=== PATIENT | male | born 1950 | race Hispanic/Latino ===

== ENCOUNTER 2023-10-26 14:56 | Inpatient (IN) | payer OTHER ==
--- OUTSIDE RECORDS SUMMARY | 2023-10-26 17:16 | XMS REPORT | Continuity of Care Document ---
Author Name Unknown Address [address] [facility] [address] [place] [address] [facility] thconnect Address [address] [facility] [address] [place] [address] Care Team Providers Care Pitch Gatherer Name Role Phone TAMIKO ARREGUIN Attending Clinician Unavailable JUAN ANTONIO GEORGE Attending Clinician Unavailable Mary Attending Clinician Unavailable LUCA ROSALES Attending Clinician Unavailable GERMAN ORTEGA Attending Clinician Unavailab JYOTI Call Attending Clinician Unavailab TAMIKO Mancia Admitting Clinician Unavailable Young_J Admitting Clinician Unavailable Payers Payer Name Policy Type Policy Number Effective Date Expirati on Date Source MEDICARE PART A AND B [id number] 2008 00:00:00 [place] [employer] [id number] 2008 00:00:00 Social History Smoking Status Start Date Stop Date Source Light Tobacco Smoker [facility] Medications Ordered Medication Name Filled Medication Name Start Date Stop Date Current Medication? Ordering Clinician Indication Dosage Frequency Signature (SIG) Comments Components Source fenofibrate 54 mg tablet TAKE 1 TABLET BY MOUTH ONCE DAILY DIRECTED fenofibrate 54 mg tablet TAKE 1 TABLET BY MOUTH ONCE DAILY DIRECTED No fenofibrat e 54 mg tablet TAKE 1 TABLET BY MOUTH ONCE DAILY DIRECTED [facility] [facility] [employer] FeroSul 325 mg (65 mg iron) tablet TAKE 1 TABLET BY MOUTH ONCE DAILY DIRECTED FOR 90 DAYS FeroSul 325 mg (65 mg iron) tablet TAKE 1 TABLET BY MOUTH ONCE DAILY DIRECTED FOR 90 DAYS No FeroSul 325 mg (65 mg iron) tablet TAKE 1 TABLET BY MOUTH ONCE DAILY DIRECTED FOR 90 DAYS [facility] [facility] [employer] folic acid 1 mg tablet TAKE 1 TABLET BY MOUTH ONCE DAILY folic acid 1 mg tablet TAKE 1 TABLET BY MOUTH ONCE DAILY No folic acid 1 mg tablet TAKE 1 TABLET BY MOUTH ONCE DAILY [facility] [facility] [employer] losartan 100 mg tablet TAKE 1 TABLET BY MOUTH IN THE MORNING losartan 100 mg tablet TAKE 1 TABLET BY MOUTH IN THE MORNING No losartan 100 mg tablet TAKE 1 TABLET BY MOUTH IN THE MORNING [facility] [employer] metoprolol tartrate 50 mg tablet TAKE 1 TABLET BY MOUTH EVERY 12 HOURS metoprolol tartrate 50 mg tablet TAKE 1 TABLET BY MOUTH EVERY 12 HOURS No metoprolol tartrate 50 mg tablet TAKE 1 TABLET BY MOUTH EVERY 12 HOURS [facility] mirtazapine 15 mg tablet TAKE 1 TABLET BY MOUTH AT BEDTIME mirtazapine 15 mg tablet TAKE 1 TABLET BY MOUTH AT BEDTIME No mirtazapin e 15 mg tablet TAKE 1 TABLET BY MOUTH AT BEDTIME [facility] omeprazole 20 mg capsule,del ayed release TAKE 1 CAPSULE BY MOUTH TWICE DAILY omeprazole 20 mg capsule,del ayed release TAKE 1 CAPSULE BY MOUTH TWICE DAILY No omeprazole 20 mg capsule,de layed release TAKE 1 CAPSULE BY MOUTH TWICE DAILY [employer] [facility] [employer] ondansetron HCl 4 mg tablet TAKE 1 TABLET BY MOUTH EVERY 8 HOURS NEEDED FOR NAUSEA ondansetron HCl 4 mg tablet TAKE 1 TABLET BY MOUTH EVERY 8 HOURS NEEDED FOR NAUSEA No ondansetro n HCl 4 mg tablet TAKE 1 TABLET BY MOUTH EVERY 8 HOURS NEEDED FOR NAUSEA [employer] [facility] [employer] polyethylen e glycol 3350 17 gram/dose oral powder MIX 17 G OF POWDER DIRECTED AND DRINK TWICE DAILY polyethylen e glycol 3350 17 gram/dose oral powder MIX 17 G OF POWDER DIRECTED AND DRINK TWICE DAILY No polyethyle ne glycol 3350 17 gram/dose oral powder MIX 17 G OF POWDER DIRECTED AND DRINK TWICE DAILY [facility] [facility] [employer] thiamine mononitrate (vitamin B1) 100 mg tablet TAKE 1 TABLET BY MOUTH ONCE DAILY thiamine mononitrate (vitamin B1) 100 mg tablet TAKE 1 TABLET BY MOUTH ONCE DAILY No thiamine mononitrat e (vitamin B1) 100 mg tablet TAKE 1 TABLET BY MOUTH ONCE DAILY [facility] cholecalcif анна (vitamin D3) 1,250 mcg (50,000 unit) capsule TAKE 1 CAPSULE BY MOUTH ONCE A WEEK DIRECTED cholecalcif анна (vitamin D3) 1,250 mcg (50,000 unit) capsule TAKE 1 CAPSULE BY MOUTH ONCE A WEEK DIRECTED No cholecalci ferol (vitamin D3) 1,250 mcg (50,000 unit) capsule TAKE 1 CAPSULE BY MOUTH ONCE A WEEK DIRECTED [facility] docusate sodium 100 mg capsule TAKE 1 CAPSULE BY MOUTH ONCE DAILY docusate sodium 100 mg capsule TAKE 1 CAPSULE BY MOUTH ONCE DAILY No docusate sodium 100 mg capsule TAKE 1 CAPSULE BY MOUTH ONCE DAILY [facility] Vital Signs Vital Name Observation Time Observation Value Comments S ource BMI (Body Mass Index) 2023-04-21 00:00:00 26.8 kg/m2 [facility] Height 2023-04-21 00:00:00 63 [in_i] [facility] Body Weight 2023-04-21 00:00:00 151.3 [facility]lb_av[facility] Diastolic 2023-04-21 00:00:00 75 mm[Hg] [facility] BP Systolic 2023-04-21 00:00:00 126 mm[Hg] [facility] Procedures Procedure Date / Time Performed Performing Clinicia n Source Append[facility] Gastrostomy Tube [facility] Encounters Start Date/Time End Date/Time Encounter Type Admission Type Attending Clinicians Care Facility Care Department Encounter ID Source 2022-10-25 10:41:11 Outpatient [facility] [id number] [facility] 2022-10-04 15:24:52 Outpatient [facility] [id number] [facility] 2022-10-03 16:43:43 Outpatient [facility] [id number] [facility] 2022-09-26 08:35:05 Outpatient [facility] [id number] [facility] 2023-10-24 22:46:00 2023-10-26 15:50:00 Inpatient TAMIKO MONTGOMERY [facility] [id number] [facility] 2023-10-24 22:46:00 2023-10-26 15:50:00 observatio n encounter [facility] [id number] [facility] [id number] 2023-10-20 11:58:00 2023-10-20 11:58:00 Outpatient JUAN ANTONIO FRANZ [facility] [id number] [facility] 2023-05-29 00:00:00 2023-05-29 00:00:00 Outpatient Young_J [facility] [id number] [facility] 2023-04-21 00:00:00 2023-04-21 00:00:00 Outpatient Young_J [facility]G MMG [id number] [facility] 2023-04-21 00:00:00 2023-04-21 00:00:00 Outpatient Young_J MMG MMG [id number] [facility] 2023-04-21 00:00:00 2023-04-21 00:00:00 Mario Leal, DO: [address], [address], [place] [address] , Ph. [phone] [facility] General surgery [id number] [facility] 2023-04-20 00:00:00 2023-04-20 00:00:00 [facility] [id number] [facility] 2023-04-04 00:00:00 2023-04-04 00:00:00 Outpatient Young_J [facility] [id number] [facility] 2022-11-06 19:23:00 2022-11-06 21:56:00 Emergency ER LUCA ROSALES [facility] [id number] [facility] 2022-11-06 19:23:00 2022-11-06 21:56:00 emergency [id number] 2022-11-03 16:00:00 2022-11-03 16:00:00 Outpatient BRI ORTEGAMATAgnse [facility] [id number] [facility] 2012-10-16 13:58:00 2012-10-16 15:54:00 Emergency ER JYOTI DANIEL [facility] [id number] [facility]
[2023-10-26] MEDS ORDERED: ACETAMINOPHEN 325 MG TABLET PO PRN (18:21)
[2023-10-26] MEDS ORDERED: IPRATROPIUM BROM 0.5MG/2.5ML NEB PRN (18:44)
[2023-10-26] MEDS ORDERED: ALBUTEROL 2.5 MG/3 ML NEB SOL NEB PRN (18:46)
[2023-10-26] MEDS ORDERED: MAGNESIUM HYDROXIDE 8% 30 ML PO PRN (18:48)
[2023-10-26] MEDS ORDERED: ONDANSETRON 4 MG (ODT) TAB PO PRN (18:49)
[2023-10-26] MEDS ORDERED: cloNIDine HCL 0.1 MG TAB PO PRN (20:10)
[2023-10-26] MEDS ORDERED: MELATONIN 3 MG TABLET PO PRN (20:10)
[2023-10-26] MEDS: DOCUSATE NA/SENNA CONC 1 TAB PO SCH (20:17)
[2023-10-26] MEDS: FENOFIBRATE 48 MG TAB PO SCH (20:17)
[2023-10-26] MEDS: METOPROLOL TAR 50 MG TAB PO SCH (20:17)
[2023-10-26] MEDS: APIXABAN 2.5 MG TABLET PO SCH (20:17)
[2023-10-27] MEDS ORDERED: HEPARIN 5000 UNIT/ML 1 ML VIAL SQ SCH (01:00)
[2023-10-27 04:05] LABS: Specific Gravity 1.018 (1.005-1.030); Sqamous Epithelial None Seen /HPF (None Seen); Urine Bacteria None Seen /HPF (<20); Urine Bilirubin NEGATIVE (Negative); Urine Blood Trace (Negative); Urine Clarity Clear (Clear); Urine Color Light-Yellow (Yellow); Urine Culture Reflex Order NOT NEEDED; Urine Glucose NEGATIVE (Negative); Urine Ketones NEGATIVE (Negative); Urine Micro Reflex YN NO BILL MICROSCOPIC; Urine Mucus Slight /HPF (None Seen); Urine Nitrite NEGATIVE (Negative); Urine Protein NEGATIVE (Negative); Urine Urobilinogen Normal (Normal); Urine WBC <5 /HPF (<5); Urine pH 5.5 (5.0-7.0)
[2023-10-27 04:08] LABS: Absolute Basophils 0.1 K/uL (0-0.5); Absolute Eosinophils 0.3 K/uL (0-0.5); Absolute Lymphocytes (CBC) 1.8 K/uL (0.7-4.9); Absolute Monocytes 0.4 K/uL (0.1-1.3); Absolute Neutrophil 4.6 K/uL (1.8-8.0); Basophils % 0.7 % (0-1.3); Eosinophils % 3.8 % (0-4.4); Hematocrit 37.2 % (39.6-49.0); Hemoglobin 12.7 g/dL (13.6-17.9); Lymphocytes % 25.1 % (15.3-44.8); MCH 30.9 pg (27.0-35.0); MCHC 34.2 g/dL (32.0-36.0); MCV 90.2 fL (80-100); MPV 8.1 fL (7.6-11.3); Monocytes % 6.2 % (3.3-12.3); Neutrophils % 64.2 % (41.7-73.7); Nucleated Red Blood Cells % 0.1 % (0-0); Platelets 283 thou/uL (152-406); RBC Red Blood Cell Count 4.13 M/uL (4.33-5.43); Red Cell Distribution Width 14.4 % (12.1-15.2)
[2023-10-27 04:43] LABS: Albumin 3.1 g/dL (3.4-5.0); Anion Gap 9.5 mEq/L (5.0-15.0); Magnesium 2.1 mg/dL (1.6-2.4); Potassium 4.5 mEq/L (3.5-5.1); Prealbumin 14.1 mg/dL (20-40)
[2023-10-27] MEDS: LOSARTAN POTASSIUM 50 MG TABLET PO SCH (06:47)
[2023-10-27] MEDS: PANTOPRAZOLE 40MG TABLET PO SCH (06:47)
[2023-10-27] MEDS ORDERED: FENOFIBRATE 48 MG TAB PO SCH (08:00)
[2023-10-27] MEDS: ASPIRIN EC 325 MG TABLET PO SCH (08:20)
[2023-10-27] MEDS: FOLIC ACID 1 MG TABLET PO SCH (08:21)
--- NOTE | 2023-10-27 13:34 | P.RH.PN ---
Estimated Length of Stay: 11 Expected Discharge Date: 11/07/23 Discharge Disposition Plan: Home Family Support: Yes Long-Term Goal: Mobility, Transfers, Self Care Vital Signs: Last Vital Signs Temp 97.7 F 10/27/23 07:30 Pulse 66 10/27/23 08:20 Resp 14 10/27/23 07:30 BP 140/74 10/27/23 08:20 Pulse Ox 96 10/27/23 07:30 Laboratory: Laboratory Last Values WBC 7.10 thou/uL (4.3-10.9) 10/27/23 03:29 RBC 4.13 M/uL (4.33-5.43) L 10/27/23 03:29 Hgb 12.7 g/dL (13.6-17.9) L 10/27/23 03:29 Hct 37.2 % (39.6-49.0) L 10/27/23 03:29 MCV 90.2 fL (80-100) 10/27/23 03:29 MCH 30.9 pg (27.0-35.0) 10/27/23 03:29 MCHC 34.2 g/dL (32.0-36.0) 10/27/23 03:29 RDW 14.4 % (12.1-15.2) 10/27/23 03:29 Plt Count 283 thou/uL (152-406) 10/27/23 03:29 MPV 8.1 fL (7.6-11.3) 10/27/23 03:29 Neutrophils % 64.2 % (41.7-73.7) 10/27/23 03:29 Lymphocytes % 25.1 % (15.3-44.8) 10/27/23 03:29 Monocytes % 6.2 % (3.3-12.3) 10/27/23 03:29 Eosinophils % 3.8 % (0-4.4) 10/27/23 03:29 Basophils % 0.7 % (0-1.3) 10/27/23 03:29 Absolute Neutrophils 4.6 K/uL (1.8-8.0) 10/27/23 03:29 Absolute Lymphocytes 1.8 K/uL (0.7-4.9) 10/27/23 03:29 Absolute Monocytes 0.4 K/uL (0.1-1.3) 10/27/23 03:29 Absolute Eosinophils 0.3 K/uL (0-0.5) 10/27/23 03:29 Absolute Basophils 0.1 K/uL (0-0.5) 10/27/23 03:29 Sodium 138 mEq/L (136-145) 10/27/23 03:29 Potassium 4.5 mEq/L (3.5-5.1) 10/27/23 03:29 Chloride 110 mEq/L (98-107) H 10/27/23 03:29 Carbon Dioxide 23 mEq/L (21-32) 10/27/23 03:29 Anion Gap 9.5 mEq/L (5.0-15.0) 10/27/23 03:29 BUN 22 mg/dL (7-18) H 10/27/23 03:29 Creatinine 1.35 mg/dL (0.70-1.30) H 10/27/23 03:29 Est GFR (CKD-EPI) 56 ml/min (=/>90) L 10/27/23 03:29 Glucose 103 mg/dL (74-106) 10/27/23 03:29 Calcium 9.3 mg/dL (8.5-10.1) 10/27/23 03:29 Magnesium 2.1 mg/dL (1.6-2.4) 10/27/23 03:29 Albumin 3.1 g/dL (3.4-5.0) L 10/27/23 03:29 Prealbumin 14.1 mg/dL (20-40) L 10/27/23 03:29 Urine Color Light-yellow (Yellow) 10/27/23 03:35 Urine Clarity Clear (Clear) 10/27/23 03:35 Urine pH 5.5 (5.0-7.0) 10/27/23 03:35 Ur Specific [place] 1.018 (1.005-1.030) 10/27/23 03:35 Glucose (UA)(Auto) Negative (Negative) 10/27/23 03:35 Urine Ketones Negative (Negative) 10/27/23 03:35 Urine Blood Trace (Negative) H 10/27/23 03:35 Urine Nitrite Negative (Negative) 10/27/23 03:35 Urine Bilirubin Negative (Negative) 10/27/23 03:35 Urine Urobilinogen Normal (Normal) 10/27/23 03:35 Ur Leukocyte Esterase Negative Loren/uL (Negative) 10/27/23 03:35 Urine RBC 11-20 /HPF (None Seen) H 10/27/23 03:35 Urine WBC <5 /HPF (<5) 10/27/23 03:35 Ur Squamous Epith Cells None seen /HPF (None Seen) 10/27/23 03:35 U Non-Squamous Epi Cells <5 /HPF (None Seen) 10/27/23 03:35 Urine Bacteria None seen /HPF (<20) 10/27/23 03:35 Urine Mucus Slight /HPF (None Seen) 10/27/23 03:35 Urine Culture Reflexed Not needed 10/27/23 03:35 Urine Total Protein Negative (Negative) 10/27/23 03:35 Weight: 164 lb 9.6 oz Wound Present: No Negative Pressure Wound Therapy Present: No Physician Update: Mild malnutrition will add Nepro shake. Walking 170' with RW, min assist. WC 150', 100'. Up and down 10 steps. He has poor balance. May require CGA with. ADLs. Summary: Patient's care plan and exterminator goals have been reviewed and revised as necessary. Please see the Rehabilitation Signature page for all necessary signatures.
[2023-10-27] MEDS: ENSURE ENLIVE 237 ML CAN PO SCH (20:20)
[2023-10-27] MEDS: GABAPENTIN 100 MG CAP PO SCH (20:21)
--- NOTE | 2023-10-27 22:07 | HP ---
Date of Admission: 10/26/2023 Time Of Service: 1 p.m. Chief Complaint: "I fell at home, I am getting better." History Of Present Illness: Mr. Wilson is a 73-year-old patient with hypertension, dyslipidemia, iron -deficiency anemia, gastroesophageal reflux disease, and stroke, left-sided weakness, who fell at [facility]. He had a witnessed mechanical fall from standing position. His daughter was at the bedside and n oted the event occurred in the afternoon and he was last known to be normal around midday. His evaluation included CT angiogram and a CT scan of his head, neck, chest, abdomen with trauma seri es, which showed no acute abnormalities such as a stroke or seizure or fractures. However, the patie nt was found to be confused and was diagnosed with acute encephalopathy. He was kept with permissive hypertension during the time for the possibility of a stroke. He is continued on his Lipitor for dy slipidemia, and had electrolyte abnormalities including potassium down to 3.4, calcium to 8.7, and cr eatinine elevated consistent with renal insufficiency from likely dehydration. The patient has had e lectrolyte correction and hydration and was evaluated by physical and occupational therapy and determ ined to be functioning well below his baseline level where he requires moderate assistance for transf ers from bed to chair to toilet, for mobilization and only was able to ambulate 2 feet with a rolling walker. He had decreased attention for safety awareness and would require speech therapy to help wi th improving cognitive functioning. As a result, the patient is deemed to be an appropriate candidat e for inpatient rehabilitation where he will receive physical, occupational and speech therapy for up to 3-1/2 hours a day. He will have 24 hours 7 day a week snf, daily physician evaluatio n, and social services designee evaluation, management for discharge planning, continuing therapy, and to decr ease the risk of rehospitalization. Past Medical History: As noted, gastroesophageal reflux disease, dyslipidemia, hypertension, prior s troke, and encephalopathy. Allergies: NO KNOWN DRUG ALLERGIES. X-ray/imaging: Chest x-ray from 10/24/2023, showed no acute cardiopulmonary abnormalities. CT angio gram from 10/24/2023, showed calcified and noncalcified atheromatous plaque in the bilateral internal carotid arteries with no significant stenosis by NASCET criteria. The left vertebral artery origin was not visualized. There was incomplete patchy minimal visualization of the vertebral artery lumen on the left, raising concerns for severe atheromatous change versus age indeterminate incomplete occl usion. 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 T here also was postoperative changes of the right side craniotomy with an aneurysm clipping present. A small less than 1 mm outpouching identified at the level of the medial aspect of the infraclinoid c arotid artery seen. Possibility of an artifact to be considered and metallic streak likely. A repea t CT scan of the head on 10/23, showed status post aneurysm clipping, chronic encephalomalacia in the right frontal and temporal lobes, a small amount of encephalomalacia in the paramedian, left frontal lobe, and generalized volume loss without acute intracranial processes. Current Medications: Tylenol 650 every 4 hours as needed, albuterol nebulizer 2.5 mg every 4 hours a s needed, Eliquis 2.5 mg twice daily, aspirin 325 mg daily, Catapres 0.1 mg every 4 hours as needed f or systolic blood pressure greater than 170, Tricor 48 mg at bedtime, folic acid 1 mg daily, gabapent in 100 mg twice daily, Atrovent nebulizer 0.5 mg every 4 hours as needed, Cozaar 100 mg daily, milk o f magnesia 30 mL every 6 hours as needed, melatonin 3 mg at bedtime, Lopressor 50 mg twice daily Ensu re Enlive 237 mL twice daily, Zofran 4 mg every 4 hours as needed, Protonix 40 mg daily, also has Sen okot S 1 tablet twice daily. Surgical History: Craniotomy for aneurysm clipping as noted. Family History: Noncontributory. Social History: No recent alcohol, tobacco, or IV drug use. Laboratory Studies: White blood cell count 10.1, hemoglobin 12.7, platelets 283. Sodium 138, potass ium 4.5, chloride 110, carbon dioxide 23, BUN 22, creatinine 1.35, glucose 103, calcium 9.3, magnesiu m 2.1, albumin 3.1, prealbumin 14.1. Urinalysis shows a trace of blood and 11-20 red blood cells oth erwise completely normal. Review of Systems: Mr. Wilson is resting comfortably. Denies any significant distress. Does report that he, of course, has his surgery craniotomy for the aneurysm clipping and some residual left-sided deficits that are a t baseline, but otherwise he says he is ready for therapy. Has no new complaints. No significant my algias, arthralgias. No rash. No headache. No new recent changes in vision. No other positives on a 10-point systems review. Functioning: For his eating, he is at setup assistance, oral hygiene, supervision; toileting moderat e assistance for his showering, upper body dressing, lower body dressing, donning and doffing footwea r, all moderate assistance. From rolling right to left, left to right from sitting to stand transfer , lying to a sitting on a sliding board and [id number]-[id number] transfer, all moderate assistance. Toilet t ransfer, moderate assistance. Ambulation with a rolling walker 2 feet, maximum assistance. Rehab And Medical Assessment And Plan: Mr. Wilson is admitted to the rehabilitation unit with impairm ent category 03, brain dysfunction nontraumatic. His impairment group code is 02.1, nontraumatic, is etiologic diagnosis, metabolic encephalopathy. His comorbidities are renal insufficiency, decreased mobility, decreased physical functioning, encephalopathy, dyslipidemia, hypertension, hypocalcemia, hypokalemia, history of stroke with cerebral aneurysm, status post craniotomy done remotely. Plan: 1.He will have physical, occupational, and speech therapy for 3.5 hours, 5 of 7 days. 2.We will continue his TriCor for his dyslipidemia. The aspirin will be changed to 81 mg daily kaitlyn g with Eliquis 2.5 mg daily for stroke and DVT risk reduction. Continue with albuterol nebulizer for his pulmonary issues. Continue with gabapentin for neuropathic pain. He does report some tingling in the fingers and toes on his review of systems actually and gabapentin was added. Nebulizer with A trovent is continued, Cozaar for hypertension 100 mg daily continued, milk of magnesia for stool soft ening, melatonin for insomnia, Ensure Enlive for his malnutrition, Zofran for nausea, Protonix for GE reflux. Comorbidities That Are Impacting Rehabilitation: His issue of some cognitive deficits may make it di fficult for him to make sound decision making for safety awareness and speech pathology will be worki ng carefully with him. He may be somewhat impulsive as well and if need be medications may be added, but we will minimize the need for additional medications. Also, with his renal insufficiency we evangelista l increase oral hydration and we will be rechecking blood work next week. Rehab Specific Plan: Mr. Wilson will have physical, occupational, and speech therapy for 3.5 hours, 5 of 7 days to improve his ability to transfer from bed to chair to toilet to shower and to do showeri ng and toileting. In addition to ambulate 250 feet with modified independence, up and down 10 steps with modified independence, propel a wheelchair 250 feet with modified independence and manage all me dications, express himself with normal language, effective communication and to comprehend communicat ion effectively as well. If need be, additional help from the hospitalist service may be consulted. Given his complex medical condition and risk of further complications, rehabilitation cannot be safel y or effectively performed at a lower level of facility such as snf. Barriers To Discharge: At this point, mild impairment in cognition and safety awareness may make it difficult for him to go back home unsupervised and may have to have family involved and family traini bobby will be very helpful and someone to there 24 hour a day, 7 days a week at least for few weeks of h im going back home. Length Of Stay: About 7-9 days. Disposition: Home with family and perhaps continue outpatient therapy. Prognosis: Good. Rehabilitation Goals: 1.Become independent with upper and lower body dressing, toileting, showering, donning and doffing o f footwear. 2.Independently ambulate 250 feet with modified independence. 3.Independently propel a wheelchair 250 feet with independence. 4.Independently go up and down 10 steps. 5.Perform all cognitive functioning independently including safety awareness, medication management on followup. The above goals were reviewed with Mr. Wilson and he is in agreement. By signing this document, I acknowledge I personally performed a full physical examination on Mr. Dhruv packer no later than 24 hours after his admission to the inpatient rehabilitation facility and determined that he is able to tolerate the above course of treatment at an intensive level for reasonable perio d of time. A detailed individualized plan of care for him will be completed by hospital day 4 based on the preadmission screen history and physical and therapy evaluations. ANDRESSA Voice ID: [id number]
--- NOTE | 2023-10-30 08:20 | P.CNS ---
Date of Consult: 10/30/23 Reason for Consult: Painful toenails bilteral feet Allergies No Known Allergies Allergy (Verified 10/26/23 17:41) Home Medications: Acetaminophen [Tylenol] 325 mg PO DAILY 10/27/23 Aspirin 325 mg PO DAILY 10/27/23 Docusate/Senna [Senokot-S] 1 tab PO DAILY 10/27/23 Fenofibrate [Tricor] 48 mg PO DAILY 10/27/23 Folic Acid 1 mg PO DAILY 10/27/23 Ipratropium/Albuterol Sulfate [Iprat-Albut 0.5-3(2.5) mg/3 ml] 3 ml IH Q4H PRN 10/27/23 Losartan Potassium [Cozaar] 100 mg PO DAILY 10/27/23 Mag Hydroxide 8% [Milk Of Magnesia] 30 ml PO Q6H PRN 10/27/23 Metoprolol Tartrate [Lopressor] 50 mg PO BID 10/27/23 Mirtazapine [Remeron] 15 mg PO BEDTIME 10/27/23 Pantoprazole [Protonix Tab] 40 mg PO DAILY 10/27/23 - Past Medical/Surgical History Diabetic: No - Social History Alcohol use: No CD- Drugs: No Caffeine use: No Place of Residence: Home Review of Systems 10-point ROS is otherwise unremarkable Physical Examination Temp Pulse Resp BP Pulse Ox 97.3 F 54 16 159/74 H 96 10/30/23 06:39 10/30/23 06:39 10/30/23 06:39 10/30/23 06:39 10/30/23 06:39 General: Alert, In no apparent distress Cardiovascular: No edema, Abnormal pulses (0/4 dp and pt pulses bilateral feet) Capillary refill: <2 Seconds Musculoskeletal: No clubbing, No swelling, No contractures, No erythema, No tenderness, No warmth Integumentary: No rashes, No breakdown, No significant lesion, No tenderness/swelling, No erythema, No warmth, No cyanosis, Other (thickened hypertrophic nails with subungual debris x 10) Neurological: Sensation intact - Problems (1) Tinea unguium Current Visit: Yes Status: Acute (2) correction (current) use of anticoagulants Current Visit: Yes Status: Acute Conclusions/Impression: Mechanical debridement of nails at bedside
--- NOTE | 2023-10-30 22:18 | PN ---
Date of Progress Note: 10/30/2023 Time Of Service: 1:20 p.m. Subjective: Mr. Wilson is resting in a chair in between his therapy sessions. He is doing very well. He is very jovial. Denies any pain. Says he is happy so far of his exercises. Review of Systems: No fevers, chills. No nausea, vomiting, myalgias, arthralgias, rash, or psychiatric issues. Physical Examination: Vital Signs: Blood pressure 134/59, pulse 73, respiratory rate 16, temperature 97.3, oxygen saturati on %. General: Mr. Wilson is sitting in a chair. HEENT: He appears normocephalic. He does have a stanton and appears somewhat disheveled, otherwise at raumatic. Sclerae anicteric. Oropharynx is moist. Neck: Supple. Chest: Clear. Heart: Regular. Extremities: Show no significant edema, cyanosis. Laboratory Studies: White blood cell count 7.1, hemoglobin 12.7, platelets 283. Sodium 138, potassi um 4.5, chloride 110, carbon dioxide 23, BUN 22, creatinine 1.35, glucose 103, magnesium 2.1, calcium 9.3, prealbumin 14.1, albumin 3.1. Urinalysis shows trace blood and red blood cells 11 to 22. X-ray/imaging: No new x-rays or imaging. Consultations: He was seen by Dr. Liu Padgett in Podiatry Service. Diagnosis of tinea unguium and he did debridement of the nails at bedside. Progress Made With Physical, Occupational, And Speech Therapy: Today with physical therapy, he did a mbulate with a rolling walker 600 feet, 350 feet and 250 feet with contact guard assistance. He mobi lized wheelchair 250 feet with independence. Dpp-ew-bbiyd transfers done with standby assistance. W ith occupational therapy, standby assistance for stand pivot transfer on and off toilet, completed to ilet hygiene and clothing management with supervision . With speech, recall 2 of 3 unrelat ed pictures after 3 minutes on 3 occasions. Used organizational thinking concrete categor y with maximum assistance. Mr. Wilson is making excellent progress with physical, occupational therapy and progress with speech t herapy. Assessment: Mr. Wilson is a 73-year-old patient in rehabilitation unit with metabolic encephalopathy for which he is recovering well. He has comorbid renal insufficiency, decreased mobility, decreased physical functioning, dyslipidemia, hypertension, hypocalcemia, hypokalemia, stroke and cerebral aneu rysm status post craniotomy. Plan: 1.Continue with physical, occupational and speech therapy for 3.5 hours, 5 of 7 days. 2.His comorbid conditions are addressed by continuing medications, which do include gabapentin for n europathic pain, Cozaar for hypertension, Zofran for nausea, Protonix for GE reflux, for m alnutrition, melatonin for insomnia. Comorbidities That Are Continuing To Impact Rehabilitation: He does have some difficulty with cognit scar functioning and safety awareness and speech pathology is working with him. For discharge home, emili boone would likely require close supervision to decrease his risk of unsafe decisions and falling with po tential fracture. LB/MODL Voice ID: [id number] Report ID: [id number]
--- NOTE | 2023-10-31 23:56 | PN ---
Date of Progress Note: 10/31/2023 Time Of Service: 1:35 p.m. Subjective: Mr. Wilson is sitting in a chair in his room. He is happy, doing well, and says he is ve ry good to go home. Review of Systems: No fevers, chills, nausea, vomiting, myalgias, arthralgias, rash, headache, weight change. Physical Examination: Vital Signs: Blood pressure 166/77, pulse of 71, respiratory rate 16, temperature 97.6, oxygen satur ation 95%. General: Mr. Wilson is sitting in a chair. He is in no significant distress. He does have a stanton a nd mustache. HEENT: He is normocephalic. Sclerae anicteric. Oropharynx moist. Neck: Supple. Chest: Clear. Extremities: No significant edema, cyanosis, or clubbing in extremities. Laboratory Studies: No new laboratory studies. X-ray/imaging: No new x-rays or imaging. Medications: Medications have been reviewed and remained unchanged. Progress Made With Physical, Occupational, And Speech Therapy: Today with physical therapy, he was a ble to complete bicycle ergometer on level 2 for 20 minutes. He did multiple [id number] transfers with contact guard assistance. He ambulated 600 feet and 250 feet with a rolling walker with standby assistance. He ascended and descended 15 steps with bilateral handrails with standby assistance. W ith speech, demonstrated 25% accuracy with orientation skills, had difficulty recalling how to commun icate using a scheduling board. Working memory skills for 4 words, he did that with 80% accuracy and minimum assistance. Mr. Wilson is making fair progress overall with therapy and is ready for discharge home actually by th e end of the week. Assessment: Mr. Wilson is a 73-year-old patient with metabolic encephalopathy, decreased physical fun ctioning, decreased mobility, dyslipidemia, hypertension, hypocalcemia, hypokalemia, stroke, cerebral aneurysm, and status post craniotomy. Plan: 1.We will continue with physical, occupational, and speech therapy for 3.5 hours, 5 of 7 days. 2.He has multiple comorbid conditions. Those are addressed by continuing his medications including his DVT prophylaxis medication, Cozaar for hypertension, Zofran for nausea, Protonix for GE reflux, a nd he has protein supplementation for malnutrition, melatonin for insomnia. Comorbidities That Are Impacting Rehabilitation: He has cognitive issues which makes safety awarenes s a challenge and he will benefit from 24-hour supervision to reduce his risk of falling and injury. LAVERNE/JULIANO Voice ID: [id number] Report ID: [id number]
[2023-11-02 04:21] LABS: Absolute Basophils 0.1 K/uL (0-0.5); Absolute Eosinophils 0.1 K/uL (0-0.5); Absolute Lymphocytes (CBC) 1.9 K/uL (0.7-4.9); Absolute Monocytes 0.6 K/uL (0.1-1.3); Absolute Neutrophil 5.7 K/uL (1.8-8.0); Basophils % 0.8 % (0-1.3); Eosinophils % 1.8 % (0-4.4); Hematocrit 38.8 % (39.6-49.0); Hemoglobin 12.8 g/dL (13.6-17.9); Lymphocytes % 22.2 % (15.3-44.8); MCH 30.3 pg (27.0-35.0); MCHC 33.1 g/dL (32.0-36.0); MCV 91.5 fL (80-100); MPV 8.6 fL (7.6-11.3); Monocytes % 7.5 % (3.3-12.3); Neutrophils % 67.7 % (41.7-73.7); Nucleated Red Blood Cells % 0.1 % (0-0); Platelets 274 thou/uL (152-406); RBC Red Blood Cell Count 4.24 M/uL (4.33-5.43); Red Cell Distribution Width 14.2 % (12.1-15.2)
[2023-11-02 04:39] LABS: Albumin 3.6 g/dL (3.4-5.0); Anion Gap 7.1 mEq/L (5.0-15.0); Magnesium 2.4 mg/dL (1.6-2.4); Potassium 4.1 mEq/L (3.5-5.1); Prealbumin 17.1 mg/dL (20-40)
[2023-11-02] MEDS: ASPIRIN EC 81 MG TAB PO SCH (08:53)
[2023-11-02 18:05] VITALS: BMI 28.9
--- NOTE | 2023-11-02 21:36 | PN ---
Date of Progress Note: 11/02/2023 Time Of Service: 1:20 p.m. Subjective: Mr. Wilson is sitting in his chair beside his room. He is happy with his therapy so far. He is making rounds independently around the unit using a wheelchair. Review of Systems: No fevers, chills, nausea, vomiting, myalgias, arthralgias, rash. No psychiatric issues. Physical Examination: Vital Signs: Blood pressure 135/76, pulse 72, respiratory rate 18, temperature 97.9, oxygen saturati on 97%. General: Mr. Wilson is resting comfortably. He is in no significant distress. He has improved all o f his responses. No evidence of any confusion. No focal neurologic deficits. Chest: Clear. Abdomen: Soft. Extremities: No significant edema in the extremities. Laboratory Studies: White blood cell count 8.2, hemoglobin 12.8, platelets 274. Sodium 140, potassi um 4.1, chloride 109, carbon dioxide 28, BUN 40, creatinine 1.63, prealbumin 17.1, albumin 3.6, magne sium 2.4, calcium 9.8, glucose 102. X-ray/imaging: No new x-rays or imaging. Mr. Wilson is making excellent progress with his therapy and will be discharged home in the morning. Assessment: Mr. Wilson is a 73-year-old patient in the rehabilitation unit with metabolic encephalopa thy from which he has recovered very well. He has decreased physical functioning, decreased mobility , dyslipidemia, hypertension, hypocalcemia, hypokalemia, cerebral aneurysm, status post craniotomy. Plan: 1.Continue with physical, occupational, and speech therapy 3.5 hours, 5 of 7 days. 2.Comorbid conditions are stably managed and he is continued on medications that are noted for GE re flux, for nausea, for malnutrition, for insomnia, hypertension, and for stroke and DVT risk reduction . Comorbidities That Are Impacting Rehabilitation: He is as noted improving significantly, but still h as difficulty with safety awareness and would be best served where there is supervision for him to re duce risk of falling and injury. LB/MODL Voice ID: [id number] Report ID: [id number]
[2023-11-03 08:42] VITALS: BP 135/85
[2023-11-03 09:40] VITALS: TEMP 97.5
== END 2023-11-03 09:00 | disposition home health service (06) | DRG 71 ==
LOC: 5TH 17:10
PROVIDERS: ADMIT Psychiatry & Neurology Neurology with Special Qualifications in Child Neurology; ATTEND Psychiatry & Neurology Neurology with Special Qualifications in Child Neurology
PROC: 0HBRXZZ Excision of Toe Nail, External Approach (ICD-10-PCS; principal; 2023-10-30)
PROC: 0HBRXZZ Excision of Toe Nail, External Approach (ICD-10-PCS; 2023-10-30)
PROC: 0HBRXZZ Excision of Toe Nail, External Approach (ICD-10-PCS; 2023-10-30)
PROC: 0HBRXZZ Excision of Toe Nail, External Approach (ICD-10-PCS; 2023-10-30)
PROC: 0HBRXZZ Excision of Toe Nail, External Approach (ICD-10-PCS; 2023-10-30)
PROC: 0HBRXZZ Excision of Toe Nail, External Approach (ICD-10-PCS; 2023-10-30)
PROC: 0HBRXZZ Excision of Toe Nail, External Approach (ICD-10-PCS; 2023-10-30)
PROC: 0HBRXZZ Excision of Toe Nail, External Approach (ICD-10-PCS; 2023-10-30)
PROC: 0HBRXZZ Excision of Toe Nail, External Approach (ICD-10-PCS; 2023-10-30)
PROC: 0HBRXZZ Excision of Toe Nail, External Approach (ICD-10-PCS; 2023-10-30)
DX: G93.41 Metabolic encephalopathy (principal); E46 Unspecified protein-calorie malnutrition; D50.9 Iron deficiency anemia, unspecified; K21.9 Gastro-esophageal reflux disease without esophagitis; E83.51 Hypocalcemia; E87.6 Hypokalemia; B35.1 Tinea unguium; I10 Essential (primary) hypertension; E78.5 Hyperlipidemia, unspecified; G47.00 Insomnia, unspecified; Z79.01 Long term (current) use of anticoagulants; Z86.73 Personal history of transient ischemic attack (TIA), and cerebral infarction without residual deficits; Z68.29 Body mass index [BMI] 29.0-29.9, adult
CPT/HCPCS: 36415; 80048; 81001; 82040; 83735; 84134; 85025; 87086; 87088; 92523; 97110; 97112; 97116; 97129; 97163; 97165; 97530; 97542